=== PATIENT | female | born 2000 | race Caucasian/White ===

== ENCOUNTER 2022-12-14 04:20 | Inpatient (IN) | payer OTHER ==
[2022-12-14] MEDS: ELECTROLYTE-148 SOLN 1,000 ML IV SCH ×3 (05:00→16:30)
[2022-12-14 05:38] VITALS: BMI 34.7
[2022-12-14] MEDS ORDERED: AZITHROMYCIN IVPB 500 MG/250 ML BAG IVPB ONE (05:38)
[2022-12-14] MEDS ORDERED: AMPICILLIN - 2 GM in SODIUM CHLORIDE 100 ML IVPB ONE (05:45)
[2022-12-14] MEDS ORDERED: AZITHROMYCIN IVPB 500 MG/250 ML D5W PRE-DOCKED IVPB ONE (05:45)
[2022-12-14 05:57] LABS: BASO % 0.4 % (0-2.0); EOS % 2.8 % (0-4.5); HEMATOCRIT 38.7 % (32.4-45.2); HEMOGLOBIN 13.2 GM/dL (10.7-15.3); LYMPH % 26.9 % (8-40); MCH 30.4 pg (25.7-33.7); MCHC 34.1 g/dl (32.0-36.0); MEAN CELL VOLUME 89.2 fl (80-96); MEAN PLT VOLUME 9.4 fl (7.5-11.1); MONO % 6.1 % (3.8-10.2); NEUT % 63.8 % (42.8-82.8); PLATELET COUNT 143 10^3/uL (134-434); RBC 4.34 M/mm3 (3.60-5.2); RDW 13.1 % (11.6-15.6); WHITE BLOOD COUNT 8.1 K/mm3 (4.0-10.0)
[2022-12-14 06:01] LABS: INR 0.96 (0.83-1.09); PROTHROMBIN TIME (PATIENT) 11.1 SEC (9.7-13.0)
[2022-12-14 06:04] LABS: ACTIVATED PTT 29.7 SECONDS (25.2-36.5)
[2022-12-14 06:12] LABS: CALCIUM 8.3 mg/dL (8.5-10.1)
[2022-12-14 06:16] LABS: CREATININE 0.5 mg/dL (0.55-1.3)
[2022-12-14] MEDS ORDERED: AMPICILLIN SODIUM 2 GM VIAL ONE (06:54)
[2022-12-14 07:08] LABS: METHADONE, UR NEGATIVE (NEGATIVE)
[2022-12-14 07:09] LABS: COCAINE, UR NEGATIVE (NEGATIVE); OPIATES, URI NEGATIVE (NEGATIVE); PHENCYCLIDINE,URINE NEGATIVE (NEGATIVE); URINE BARBITURATES NEGATIVE (NEGATIVE); URINE BENZODIAZEPINES NEGATIVE (NEGATIVE)
[2022-12-14 07:18] LABS: URINE AMPHETAMINES NEGATIVE (NEGATIVE)
[2022-12-14] MEDS ORDERED: OXYTOCIN 30 UNITS in 0.9% NS 30 UNIT/500 ML INFUS.BAG IVPB ONE (07:57)
[2022-12-14] MEDS ORDERED: OXYTOCIN 30 UNITS in 0.9% NS 30 UNIT/500 ML INFUS.BAG IVPB SCH (08:00)
[2022-12-14] MEDS ORDERED: FENTANYL/BUPIVACAINE/NS/PF - PCEA - 50 ML DISP.SYRIN EP ONE (15:55)
[2022-12-14] MEDS ORDERED: NALOXONE HCL 0.4 MG/ML VIAL IVPUSH PRN (16:54)
[2022-12-14] MEDS ORDERED: FENTANYL/BUPIVACAINE/NS/PF - PCEA - 50 ML DISP.SYRIN EP SCH (17:00)
[2022-12-14] MEDS ORDERED: OXYTOCIN 20 UNITS in 0.9% NS 20 UNIT/1,000 ML INFUS.BAG IV ONE (17:10)
[2022-12-14] MEDS ORDERED: BENZOCAINE 20% 57 GM BOTTLE TP PRN (18:59)
[2022-12-14] MEDS ORDERED: BISACODYL 10 MG SUPP.RECT RC PRN (18:59)
[2022-12-14] MEDS ORDERED: BENZOCAINE 28 GM HEMORRHOIDAL OINTMENT TP PRN (18:59)
[2022-12-14] MEDS ORDERED: ACETAMINOPHEN 325 MG TABLET (FP) PO PRN (18:59)
[2022-12-14] MEDS ORDERED: METHYLERGONOVINE MALEATE 0.2 MG/1 ML AMP IM PRN (18:59)
[2022-12-14] MEDS ORDERED: WITCH HAZEL 50% (TUCKS) 40 PAD/JAR PAD TP PRN (18:59)
[2022-12-14] MEDS ORDERED: OXYTOCIN 20 UNITS in 0.9% NS 20 UNIT/1,000 ML INFUS.BAG IV SCH (19:00)
[2022-12-14 20:47] VITALS: RESP 18
[2022-12-15 07:13] LABS: BASO % 0.3 % (0-2.0); EOS % 0.7 % (0-4.5); HEMATOCRIT 32.9 % (32.4-45.2); HEMOGLOBIN 11.5 GM/dL (10.7-15.3); MCH 30.6 pg (25.7-33.7); MCHC 34.9 g/dl (32.0-36.0); MEAN CELL VOLUME 87.6 fl (80-96); MEAN PLT VOLUME 8.8 fl (7.5-11.1); MONO % 6.9 % (3.8-10.2); NEUT % 69.1 % (42.8-82.8); PLATELET COUNT 129 10^3/uL (134-434); RBC 3.76 M/mm3 (3.60-5.2); WHITE BLOOD COUNT 11.3 K/mm3 (4.0-10.0)
[2022-12-15] MEDS: FERROUS SO4 325 MG TABLET (FP) PO SCH ×2 (09:00→17:53)
[2022-12-15] MEDS: PRENATAL VITAMINS W/ FOLIC ACID TABLET (FP) PO SCH (09:56)
[2022-12-15] MEDS: IBUPROFEN 600 MG TABLET (FP) PO PRN (09:56)
[2022-12-15] MEDS ORDERED: SENNOSIDES/DOCUSATE COMBO (SENNA PLUS) TABLET (UD) PO PRN (22:00)
[2022-12-16] MEDS: FERROUS SO4 325 MG TABLET (FP) PO SCH (09:00)
[2022-12-16] MEDS: PRENATAL VITAMINS W/ FOLIC ACID TABLET (FP) PO SCH (09:45)
[2022-12-16] MEDS: IBUPROFEN 600 MG TABLET (FP) PO PRN (09:45)
[2022-12-16 10:28] VITALS: BP 121/76; PULSE 99; TEMP 97.8
== END 2022-12-16 12:17 | disposition home or self-care (01) | DRG 560 ==
LOC: JLDR 04:20 → J3W 21:06
PROVIDERS: ADMIT Obstetrics & Gynecology; ATTEND Obstetrics & Gynecology
PROC: 10E0XZZ Delivery of Products of Conception, External Approach (ICD-10-PCS; principal; 2022-12-14)
PROC: 0HQ9XZZ Repair Perineum Skin, External Approach (ICD-10-PCS; 2022-12-14)
DX: O42.92 Full-term premature rupture of membranes, unspecified as to length of time between rupture and onset of labor (principal); O70.0 First degree perineal laceration during delivery; Z3A.37 37 weeks gestation of pregnancy; Z37.0 Single live birth
CPT/HCPCS: 36415; 80048; 80307; 85025; 85461; 85610; 85730; 86780; 86850; 86900; 86901; J2790

== ENCOUNTER 2024-06-11 07:04 | Inpatient (IN) | payer OTHER ==
[2024-06-11 07:16] VITALS: BMI 33.5
[2024-06-11] MEDS ORDERED: ACETAMINOPHEN INJECTION 100 ML ONE (08:02)
[2024-06-11] MEDS ORDERED: ONDANSETRON 4 MG/2 ML VIAL ONE ×3 (08:02→14:08)
[2024-06-11] MEDS: ONDANSETRON 4 MG/2 ML VIAL IVPUSH ONE (08:26)
[2024-06-11] MEDS: ACETAMINOPHEN 1000 MG/100 ML BAG IVPB ONE ×2 (08:27→13:00)
[2024-06-11] MEDS: SODIUM CHLORIDE 1,000 ML IV STA ×2 (08:27→09:15)
[2024-06-11 08:35] LABS: BASO % 0.2 % (0-2.0); EOS % 2.3 % (0-4.5); HEMATOCRIT 38.1 % (32.4-45.2); HEMOGLOBIN 13.1 GM/dL (10.7-15.3); MCH 30.2 pg (25.7-33.7); MCHC 34.3 g/dl (32.0-36.0); MEAN CELL VOLUME 88.1 fl (80-96); MEAN PLT VOLUME 8.1 fl (7.5-11.1); MONO % 3.5 % (3.8-10.2); PLATELET COUNT 190 10^3/uL (134-434); RBC 4.33 M/mm3 (3.60-5.2); RDW 12.7 % (11.6-15.6); WHITE BLOOD COUNT 9.1 K/mm3 (4.0-10.0)
[2024-06-11 08:39] LABS: INR 1.05 (0.83-1.09); PROTHROMBIN TIME (PATIENT) 11.9 SEC (9.7-13.0)
[2024-06-11 08:51] LABS: POTASSIUM 3.5 mmol/L (3.5-5.1)
[2024-06-11 08:53] LABS: ALBUMIN 3.6 g/dl (3.4-5.0); CALCIUM 8.8 mg/dL (8.5-10.1)
[2024-06-11 08:54] LABS: BLOOD UREA NITROGEN 11.4 mg/dL (7-18); MAGNESIUM 1.9 mg/dL (1.8-2.4)
[2024-06-11 08:57] LABS: CREATININE 0.7 mg/dL (0.55-1.3)
[2024-06-11 08:58] LABS: BILIRUBIN,TOTAL 0.4 mg/dL (0.2-1); TOT PROT 6.6 g/dl (6.4-8.2)
[2024-06-11] MEDS ORDERED: LIDOCAINE HCL/PF 2% SDV 5ML VIAL ONE (09:50)
[2024-06-11] MEDS ORDERED: PROPOFOL 20 ML ONE (09:51)
[2024-06-11] MEDS ORDERED: SUCCINYLCHOLINE CHLORIDE 200 MG/10 ML SYRINGE ONE (09:51)
[2024-06-11] MEDS ORDERED: MIDAZOLAM HCL 2 MG/2 ML SINGLE DOSE VIAL ONE (09:51)
[2024-06-11] MEDS ORDERED: ROCURONIUM BROMIDE 50 MG/5 ML SYRINGE ONE (09:51)
[2024-06-11] MEDS ORDERED: DEXAMETHASONE SOD PHOSPHATE 4 MG/1 ML VIAL ONE (10:23)
[2024-06-11] MEDS ORDERED: ceFAZolin SODIUM 1 GM VIAL ONE (10:23)
[2024-06-11] MEDS: ceFAZolin SODIUM 1 GM VIAL IVPB ONE (10:25)
[2024-06-11] MEDS ORDERED: NEOSTIGMINE METHYLSULFATE 0.5 MG/1 ML - 10 ML MDV ONE (11:15)
[2024-06-11] MEDS ORDERED: KETOROLAC TROMETHAMINE 30 MG/1 ML VIAL ONE (11:15)
[2024-06-11] MEDS ORDERED: GLYCOPYRROLATE 0.2 MG/1 ML VIAL ONE (11:15)
[2024-06-11] MEDS ORDERED: ONDANSETRON 4 MG/2 ML VIAL IVPUSH PRN (11:32)
[2024-06-11] MEDS ORDERED: PROMETHAZINE HCL 25 MG/1 ML VIAL IVPB PRN ×2 (11:32→12:39)
[2024-06-11] MEDS: ALBUTEROL SO4 0.083% IH SOL 2.5 MG/3 ML VIAL.NEB. NEB ONE (11:38)
[2024-06-11] MEDS ORDERED: ALBUTEROL SO4 0.083% IH SOL 2.5 MG/3 ML VIAL.NEB. NEB ONE (12:00)
[2024-06-11] MEDS ORDERED: ACETAMINOPHEN 1000 MG/100 ML BAG IVPB ONE (12:00)
[2024-06-11 12:34] LABS: HEMATOCRIT 33.7 % (32.4-45.2); HEMOGLOBIN 11.3 GM/dL (10.7-15.3); MCH 29.6 pg (25.7-33.7); MCHC 33.5 g/dl (32.0-36.0); MEAN CELL VOLUME 88.6 fl (80-96); MEAN PLT VOLUME 8.3 fl (7.5-11.1); PLATELET COUNT 169 10^3/uL (134-434); RBC 3.81 M/mm3 (3.60-5.2); RDW 12.8 % (11.6-15.6); WHITE BLOOD COUNT 15.8 K/mm3 (4.0-10.0)
[2024-06-11] MEDS: LACTATED RINGERS SOLUTION 1,000 ML IV SCH ×2 (12:37→12:50)
[2024-06-11] MEDS: RHO(D) IMMUNE GLOBULIN 1,500 UNIT DISP.SYRIN IM ONE (12:50)
[2024-06-11] MEDS ORDERED: PHENYLEPHRINE HCL 10 MG/1 ML SINGLE DOSE VIAL ONE (13:40)
[2024-06-11] MEDS: ONDANSETRON 4 MG/2 ML VIAL IVPUSH PRN (14:09)
[2024-06-11] MEDS: ACETAMINOPHEN 500 MG TABLET (FP) PO PRN (18:23)
[2024-06-11] MEDS: CEFAZOLIN SODIUM 2 GM in DEXTROSE 5%-WATER 100 ML IVPB SCH (18:24)
[2024-06-11 19:34] LABS: BASO % 0.2 % (0-2.0); HEMATOCRIT 33.9 % (32.4-45.2); HEMOGLOBIN 11.5 GM/dL (10.7-15.3); LYMPH % 5.3 % (8-40); MCH 29.6 pg (25.7-33.7); MEAN CELL VOLUME 86.9 fl (80-96); MONO % 2.9 % (3.8-10.2); NEUT % 91.6 % (42.8-82.8); PLATELET COUNT 142 10^3/uL (134-434); RDW 13.1 % (11.6-15.6); WHITE BLOOD COUNT 10.9 K/mm3 (4.0-10.0)
[2024-06-11] MEDS: CEFAZOLIN 2 GM/D5W 2 GM/50 ML ML IVPB SCH (20:08)
[2024-06-11 20:40] LABS: ANISOCYTOSIS 0; MACROCYTOSIS 0
[2024-06-11 22:41] VITALS: RESP 18
[2024-06-11 23:31] LABS: HEMATOCRIT 31.7 % (32.4-45.2); HEMOGLOBIN 10.8 GM/dL (10.7-15.3); MCH 29.5 pg (25.7-33.7); MCHC 33.9 g/dl (32.0-36.0); MEAN CELL VOLUME 86.8 fl (80-96); MEAN PLT VOLUME 7.9 fl (7.5-11.1); PLATELET COUNT 141 10^3/uL (134-434); RBC 3.65 M/mm3 (3.60-5.2); WHITE BLOOD COUNT 11.7 K/mm3 (4.0-10.0)
[2024-06-12] MEDS: oxyCODONE HCL 5 MG TABLET PO PRN (00:59)
[2024-06-12 02:18] LABS: LACTIC ACID 2.6 mmol/L (0.4-2.0)
[2024-06-12] MEDS: INSULIN (NOVOLOG) ASPART 100 UNITS/ML 10ML VIAL SQ ONE (02:39)
[2024-06-12] MEDS: LACTATED RINGERS SOLUTION 1,000 ML/1,000 ML INFUS.BAG IV STA (03:01)
[2024-06-12] MEDS: AZITHROMYCIN IVPB 500 MG in DEXTROSE 5%-WATER - 250 ML IVPB ONE (04:24)
[2024-06-12] MEDS: CEFTRIAXONE 1,000 MG in DEXTROSE 5%-WATER - 50 ML IVPB ONE (04:24)
[2024-06-12] MEDS: LACTATED RINGERS SOLUTION 1,000 ML IV SCH (07:00)
[2024-06-12 07:56] LABS: BASO % 0.1 % (0-2.0); EOS % 0.1 % (0-4.5); HEMATOCRIT 26.9 % (32.4-45.2); HEMOGLOBIN 9.2 GM/dL (10.7-15.3); LYMPH % 19.6 % (8-40); MCH 29.9 pg (25.7-33.7); MCHC 34.3 g/dl (32.0-36.0); MEAN CELL VOLUME 87.2 fl (80-96); MEAN PLT VOLUME 8.1 fl (7.5-11.1); MONO % 9.2 % (3.8-10.2); PLATELET COUNT 125 10^3/uL (134-434); RBC 3.08 M/mm3 (3.60-5.2); RDW 13.1 % (11.6-15.6); WHITE BLOOD COUNT 9.7 K/mm3 (4.0-10.0)
[2024-06-12 08:16] LABS: POTASSIUM 3.6 mmol/L (3.5-5.1)
[2024-06-12 08:18] LABS: BLOOD UREA NITROGEN 9.5 mg/dL (7-18); CALCIUM 7.9 mg/dL (8.5-10.1)
[2024-06-12 08:19] LABS: MAGNESIUM 1.6 mg/dL (1.8-2.4)
[2024-06-12 08:22] LABS: CREATININE 0.5 mg/dL (0.55-1.3); PHOSPHOROUS 2.9 mg/dL (2.5-4.9)
[2024-06-12] MEDS: PANTOPRAZOLE 40 MG TABLET PO SCH (09:45)
[2024-06-12] MEDS ORDERED: PANTOPRAZOLE 20 MG TABLET PO SCH (10:00)
[2024-06-12 12:06] LABS: EPI CELLS >36 /uL (0-25.1); HYALINE CASTS 2 /uL (0-3.1); PH,URINE 6.5 (5.0-8.0); URINE APPEARANCE CLEAR; URINE BACTERIA 7 /uL (0-1359); URINE BILIRUBIN NEGATIVE (NEGATIVE); URINE COLOR YELLOW; URINE GLUCOSE (UA) NEGATIVE (NEGATIVE); URINE KETONE NEGATIVE (NEGATIVE); URINE LEUK ESTERASE NEGATIVE (NEGATIVE); URINE NITRITE NEGATIVE (NEGATIVE); URINE PROTEIN NEGATIVE (NEGATIVE); URINE RBC 50 /uL (0-23.9); URINE UROBILINOGEN 0.2 mg/dL (0.2-1.0); URINE WBC 11 /uL (0-25.8)
[2024-06-12] MEDS: SODIUM CHLORIDE NASAL SPRAY 44 ML BOTTLE NS PRN (15:18)
[2024-06-12] MEDS ORDERED: CEFTRIAXONE 1 G/50 ML PREMIX 50 ML IVPB SCH (18:00)
[2024-06-12] MEDS: CEFTRIAXONE 1 G/50 ML PREMIX 50 ML IVPB SCH (18:09)
[2024-06-12] MEDS: AZITHROMYCIN 250 MG TABLET PO SCH (20:21)
[2024-06-13 09:28] VITALS: BP 104/76; PULSE 107; TEMP 98.1
[2024-06-13 11:00] LABS: HEMATOCRIT 29.1 % (32.4-45.2); HEMOGLOBIN 9.9 GM/dL (10.7-15.3); MCH 30.1 pg (25.7-33.7); MEAN CELL VOLUME 88.5 fl (80-96); MEAN PLT VOLUME 7.4 fl (7.5-11.1); PLATELET COUNT 135 10^3/uL (134-434); RBC 3.28 M/mm3 (3.60-5.2); RDW 13.1 % (11.6-15.6); WHITE BLOOD COUNT 7.2 K/mm3 (4.0-10.0)
== END 2024-06-13 14:35 | disposition home or self-care (01) | DRG 545 ==
LOC: JER 07:04 → JERBED 09:56 → J3W 14:55
PROVIDERS: ADMIT Obstetrics & Gynecology; ATTEND Obstetrics & Gynecology
PROC: 0WCG4ZZ Extirpation of Matter from Peritoneal Cavity, Percutaneous Endoscopic Approach (ICD-10-PCS; 2024-06-11)
PROC: 3E1M48Z Irrigation of Peritoneal Cavity using Irrigating Substance, Percutaneous Endoscopic Approach (ICD-10-PCS; 2024-06-11)
PROC: 10T24ZZ Resection of Products of Conception, Ectopic, Percutaneous Endoscopic Approach (ICD-10-PCS; principal; 2024-06-11 10:00)
DX: O00.80 Other ectopic pregnancy without intrauterine pregnancy (principal); K66.1 Hemoperitoneum; J45.909 Unspecified asthma, uncomplicated; D62 Acute posthemorrhagic anemia; J95.89 Other postprocedural complications and disorders of respiratory system, not elsewhere classified; I97.191 Other postprocedural cardiac functional disturbances following other surgery; Y83.8 Other surgical procedures as the cause of abnormal reaction of the patient, or of later complication, without mention of misadventure at the time of the procedure; A41.89 Other specified sepsis
CPT/HCPCS: 0241U-QW; 36415; 36430; 71045-TC-FY; 71275-TC; 74176-TC; 80048; 80053; 81003; 83605; 83735; 84100; 84484; 84702; 85025; 85027; 85610; 85730; 86870; 86880; 86902; 87086; 88305-TC; 93005; 93010; 94760; 99291; J0131; P9058; Q9967